=== PATIENT | male | born 1980 | race American Indian/Alaskan Native ===

== ENCOUNTER 2022-01-23 19:03 | Emergency (ER) | payer SELFPAY ==
[2022-01-23 20:54] VITALS: BP 144/97
--- NOTE | 2022-01-23 21:45 | XRay Report ---
LEFT FOOT 3 VIEW(S) INDICATION / CLINICAL INFORMATION: bucket injury.... fell off curb COMPARISON: None available. FINDINGS: BONES / JOINT(S): No acute fracture or subluxation. No significant arthritis. SOFT TISSUES: No significant abnormality. ADDITIONAL FINDINGS: None. IMPRESSION: 1. No acute findings. Signer Name: Shira Méndez MD Signed: 01/23/2022 9:41 PM Workstation Name: [id number]
== END 2022-01-24 01:07 | disposition left against medical advice (07) ==
LOC: ED 19:03
DX: S93.409A Sprain of unspecified ligament of unspecified ankle, initial encounter (principal); Z53.21 Procedure and treatment not carried out due to patient leaving prior to being seen by health care provider; X58.XXXA Exposure to other specified factors, initial encounter; Y93.89 Activity, other specified; Y92.89 Other specified places as the place of occurrence of the external cause; Y99.8 Other external cause status